=== PATIENT | male | born 2000 | race Hispanic/Latino ===

== ENCOUNTER 2025-01-02 01:42 | Emergency (ER) | payer SELFPAY ==
[~2025-01-02] VITALS: Ht 162.6 cm; Wt 56.7 kg
[~2025-01-02 01:42] MED LIST: MAXITROL EYE O3.5 GM OD
[2025-01-02 01:45] VITALS: PULSE 73; RESP 18; TEMP 98.6
[2025-01-02] MEDS ORDERED: DIPHENHYDRAMINE HCL INJ 50 MG/ML VIAL IV ONE (02:00)
[2025-01-02] MEDS ORDERED: ONDANSETRON ODT4 MG PO (02:01)
[2025-01-02] MEDS ORDERED: PANTOPRAZOLE SO40 MG PO (02:01)
[2025-01-02] MEDS ORDERED: MAALOX MAXIMUM355 ML PO (02:01)
[2025-01-02] MEDS: LACTATED RINGER'S 1,000 ML INJ ONE (02:08)
[2025-01-02] MEDS ORDERED: MAGNESIUM/ALUMINUM/SIMETHICONE 30 ML UDC ONE (02:17)
[2025-01-02] MEDS ORDERED: KETOROLAC TROMETHAMINE 30 MG/ML VIAL ONE (02:17)
[2025-01-02] MEDS ORDERED: FAMOTIDINE 20 MG/2 ML VIAL IV ONE (02:17)
[2025-01-02] MEDS ORDERED: ONDANSETRON HCL INJ 2MG/ML 2ML 2 MG/ML VIAL ONE (02:17)
[2025-01-02] MEDS ORDERED: BELLADONNA ALK/PHENOBARBITAL 5 ML UDC ONE (02:17)
[2025-01-02] MEDS ORDERED: LACTATED RINGER'S 1,000 ML ONE (02:18)
[2025-01-02] MEDS ORDERED: LIDOCAINE VISC 2% SOLN 15 ML UDC ONE (02:18)
[2025-01-02] MEDS: KETOROLAC TROMETHAMINE 30 MG/ML VIAL IV ONE (02:23)
[2025-01-02] MEDS: FAMOTIDINE 20 MG/2 ML VIAL IV ONE (02:24)
[2025-01-02] MEDS: ONDANSETRON HCL INJ 2MG/ML 2ML 2 MG/ML VIAL IV ONE (02:25)
[2025-01-02] MEDS: DONNATAL/LIDOCAINE/MAALOX 30 ML SUSP PO ONE (02:26)
[2025-01-02 03:05] VITALS: BP 135/68; PULSE 70; RESP 18; TEMP 98.6; O2SAT 100
== END 2025-01-02 03:05 | disposition home or self-care (01) ==
LOC: FSED 01:48
DX: R11.2 Nausea with vomiting, unspecified (principal); F12.10 Cannabis abuse, uncomplicated; K29.70 Gastritis, unspecified, without bleeding; K80.20 Calculus of gallbladder without cholecystitis without obstruction; R10.13 Epigastric pain; F41.9 Anxiety disorder, unspecified; F17.210 Nicotine dependence, cigarettes, uncomplicated
CPT/HCPCS: 74176; 80048; 80076; 80307; 81003; 85025; 99284; J1308; J1885; J2405; J7121

== ENCOUNTER 2025-01-07 01:36 | Emergency (ER) | payer SELFPAY ==
[~2025-01-07] VITALS: Ht 162.6 cm; Wt 54.0 kg
[~2025-01-07 01:36] MED LIST changes: +MAALOX MAXIMUM355 ML PO; +ONDANSETRON ODT4 MG PO; +PANTOPRAZOLE SO40 MG PO
[2025-01-07 02:02] VITALS: PULSE 63; RESP 18; TEMP 98.2
[2025-01-07] MEDS ORDERED: BELLADONNA ALK/PHENOBARBITAL 5 ML UDC ONE (02:34)
[2025-01-07] MEDS ORDERED: LIDOCAINE VISC 2% SOLN 15 ML UDC ONE (02:35)
[2025-01-07] MEDS ORDERED: MAGNESIUM/ALUMINUM/SIMETHICONE 30 ML UDC ONE (02:35)
[2025-01-07] MEDS: ONDANSETRON HCL 4 MG ORAL DISINTEGRATING TAB PO ONE (02:40)
[2025-01-07] MEDS: ACETAMINOPHEN 325 MG TAB PO ONE (02:41)
[2025-01-07] MEDS: DONNATAL/LIDOCAINE/MAALOX 30 ML SUSP PO ONE (02:47)
[2025-01-07 02:54] VITALS: BP 141/91; PULSE 63; RESP 18; TEMP 98.2; O2SAT 100
[2025-01-07] MEDS: BELLADONNA ALK/PHENOBARBITAL 5 ML UDC PO ONE (05:19)
[2025-01-07] MEDS: MAGNESIUM/ALUMINUM/SIMETHICONE 30 ML UDC PO ONE (05:20)
[2025-01-07] MEDS: LIDOCAINE VISC 2% SOLN 15 ML UDC PO ONE (05:20)
== END 2025-01-07 02:54 | disposition home or self-care (01) ==
LOC: FSED 01:48
DX: R11.2 Nausea with vomiting, unspecified (principal); K29.70 Gastritis, unspecified, without bleeding; F12.10 Cannabis abuse, uncomplicated; R10.13 Epigastric pain; K21.9 Gastro-esophageal reflux disease without esophagitis; F41.9 Anxiety disorder, unspecified; F17.210 Nicotine dependence, cigarettes, uncomplicated
CPT/HCPCS: 99282; Q0162